=== PATIENT | female | born 1960 | race Caucasian/White ===

== ENCOUNTER 2022-05-06 14:58 | Emergency (ER) | payer OTHER, SELFPAY ==
[2022-05-06 15:06] VITALS: PULSE 69; O2SAT 97
[2022-05-06 15:07] VITALS: BP 131/73; PULSE 69; O2SAT 96
--- NOTE | 2022-05-06 15:13 | ED.LOWEXIN ---
HPI - Extremity Injury (Lower) General Chief Complaint: Fall Stated Complaint: fall through porch, right leg injury Time Seen by Provider: 05/06/22 15:03 History of Present Illness HPI Narrative: Patient is a 61-year-old female who has a history of asthma presenting today with right leg pain. She reports going down the steps of her porch when she slipped through 1 of the stairs. She was stuck in the stair waited 40 minutes before anyone could find her. She received Toradol and fentanyl prior to arrival. He is able to move her toes she is complaining of pain mostly in her mayo. She does not think she hit her head or lost consciousness. She is no neck pain no other injury. Her hip and knee on that side do not have pain. Related Data Previous Rx's Medication Instructions Recorded hydrocodone 5 mg-acetaminophen 325 1 tab PO Q6H PRN pain #10 tabs 05/06/22 mg tablet Review of Systems Review of Systems ROS Unobtainable: All systems reviewed & are unremarkable except as noted in HPI and below Patient History Social History Smoking Status: Current some day smoker Exam Initial Vital Signs Initial Vital Signs: Vital Signs Pulse Rate 69 05/06/22 15:06 Pulse Oximetry 97 05/06/22 15:06 GENERAL: Alert pleasant well-appearing 61-year-old HEENT: Head atraumatic,EOMI, pupils reactive, face symmetric, moist mucous membranes NECK: No vertebral tenderness no step-off full flexion-extension and rotation CARDIOVASCULAR: Regular rate and rhythm without murmurs, rubs or gallops. RESPIRATORY: Breath sounds equal bilaterally, no wheezes rales or rhonchi. ABDOMEN: Soft, nontender. Normoactive bowel sounds all 4 quadrants. No guarding or rebound. EXTREMITIES: Normal range of motion, no clubbing or edema. Neurovascularly intact. Pelvis stable Right lower extremity: Able to flex and extend knee no significant effusion knee is stable able to move toes ankle is stable distal pedal pulses intact and palpable. Calf is soft some superficial scratches noted no significant laceration NEUROLOGICAL: Alert and oriented x4. SKIN: Warm, dry, no laceration, no petechiae, no rashes or lesions. Course Orders Ordered: ED Orders 05/06/22 15:14 XR ankle RT min 3V Stat XR tibia fibula RT 2V Stat Discontinued Medications Hydrocodone Bitart/Acetaminophen (Hydrocodone/Acet 5/325 Prepack) 1 bottle MISC SEEINSTR ONE Stop: 05/06/22 17:11 Last Admin: 05/06/22 17:22 Dose: 1 bottle Documented By: RENNY Vital Signs Vital signs: Vital Signs - 8 hr 05/06/22 15:16 05/06/22 15:06 05/06/22 15:07 Temperature 98.7 F Pulse Rate 63 69 Respiratory Rate 18 Blood Pressure 131/73 131/73 Pulse Oximetry 98 97 Oxygen Delivery Method Room Air 05/06/22 15:07 05/06/22 15:30 05/06/22 16:00 Temperature Pulse Rate 69 70 74 Respiratory Rate Blood Pressure Pulse Oximetry 96 96 94 Oxygen Delivery Method 05/06/22 17:32 Temperature Pulse Rate 64 Respiratory Rate 18 Blood Pressure 130/70 Pulse Oximetry 99 Oxygen Delivery Method Room Air MDM - Extremity Injury (Lower) Imaging Data Extremity x-ray #1: Radiologist's Impression: PROCEDURE:? XR TIBIA FUBULA RT 2V ? INDICATIONS:? fall ? TECHNIQUE:? 2 views of the tibia and fibula were acquired.? ? COMPARISON:? [facility], XR ANKLE RT MIN 3V, 05/06/2022, 15:12. ? FINDINGS:? ? Bones:? Overlying artifact can be seen.? Along the posterior aspect the distal tibia, there is a fracture fragment seen posteriorly, which has rounded, partially corticated margins. ? Soft tissues:? No suspicious soft tissue calcifications or masses.? ? ? IMPRESSION:? Likely remote fracture of the posterior distal tibia. ? If it would be helpful for clinical management decision making in this patient with this given history, please consider a dedicated ankle CT for further evaluation. ? ? Dictated by: John Mariee M.D. on 05/06/2022 at 14:51? Extremity x-ray #2: Radiologist's Impression: PROCEDURE:? XR ANKLE RT MIN 3V ? INDICATIONS:? fall pain ? TECHNIQUE:? 3 views of the ankle were acquired.? ? COMPARISON:? [facility], , XR TIBIA FIBULA RT 2V, 05/06/2022, 15:12. ? FINDINGS:? Overlying artifact can be seen. ? Bones:? No definite fractures or dislocations.? Ankle mortise is normally aligned.? No suspicious bony lesions.? The talar dome demonstrates no nikia abnormality.? Age-appropriate bony degenerative changes are seen.? ? Soft tissues:? No tibiotalar joint effusion.? Achilles tendon appears normal.? ? ? IMPRESSION:? Limited study demonstrating no nikia findings fracture or dislocation. ? If there is point tenderness (or other clinical suspicion for a fracture not seen on these images) then a dedicated CT could be considered for further evaluation, if clinically appropriate. ? Dictated by: John Mariee M.D. on 05/06/2022 at 14:44 ? ? MDM Narrative Medical decision making narrative: Patient 61-year-old female who presents with right leg pain after falling through her porch. She has no other injury x-rays are negative she is actually able to move it she has a couple of superficial erythematous scratches but no lacerations. She is able to ambulate with crutches. There is no evidence of compartment syndrome her calf is soft is able to move her foot and toes. Discussed pain control at home. And strict return precautions Discharge Plan Departure Patient Disposition: Home Clinical Impression: Pain in right leg, Contusion Instructions: Contusion Activity Restrictions/Additional Instructions: *You have been diagnosed with right leg pain and continue *What to do: I am so happy you did not break anything. Please keep leg elevated ice, use crutches as needed *Continue to take medications as directed [place] 1 tablet every 6 hours if needed for severe pain Motrin 600 mg every 6 hours if needed for [id number] *Follow up with your primary care provider in 2-3 days or call [phone] *Return to ER if you should have increasing pain swelling inability to move or any new, worsening or concerning symptoms CONTROLLED SUBSTANCE DISCHARGE (Narcotoic/benzodiazepine/Flexeril/Phenergan) 1. You have been prescribed narcotic medications, it does have acetaminophen/Tylenol/paracetamol in it, DO NOT TAKE MORE THAN 4,00mg in 24 hours of Tylenol. TRAMADOL DOES NOT CONTAIN TYLENOL 2. Please understand that we cannot provide further refills of narcotics, benzodiazepines or controlled substances through the ED and her pain management will need to be through your provider. 3. While on these medications you cannot drive or operate heavy machinery. 4. You cannot sign legal documents or perform any duties such as this. 5. As long as you're taking opiate pain medications he should also be taking a stool softener such as Colace, Dulcolax, MiraLAX or prune juice, to help avoid constipation. Prescriptions: New hydrocodone-acetaminophen 5-325 mg tablet 1 tab PO Q6H PRN (Reason: pain) Qty: 10 0RF Stand Alone Forms: Patient Portal/API
--- NOTE | 2022-05-06 15:14 | DI.RAD.S_ITS ---
PROCEDURE: XR TIBIA FUBULA RT 2V INDICATIONS: fall TECHNIQUE: 2 views of the tibia and fibula were acquired. COMPARISON: [facility], CR, XR ANKLE RT MIN 3V, 05/06/2022, 15:12. FINDINGS: Bones: Overlying artifact can be seen. Along the posterior aspect the distal tibia, there is a fracture fragment seen posteriorly, which has rounded, partially corticated margins. Soft tissues: No suspicious soft tissue calcifications or masses. IMPRESSION: Likely remote fracture of the posterior distal tibia. If it would be helpful for clinical management decision making in this patient with this given history, please consider a dedicated ankle CT for further evaluation. Dictated by: John Mariee M.D. on 05/06/2022 at 14:51 Approved by: John Mariee M.D. on 05/06/2022 at 14:52
--- NOTE | 2022-05-06 15:14 | DI.RAD.S_ITS ---
PROCEDURE: XR ANKLE RT MIN 3V INDICATIONS: fall pain TECHNIQUE: 3 views of the ankle were acquired. COMPARISON: [facility], , XR TIBIA FIBULA RT 2V, 05/06/2022, 15:12. FINDINGS: Overlying artifact can be seen. Bones: No definite fractures or dislocations. Ankle mortise is normally aligned. No suspicious bony lesions. The talar dome demonstrates no nikia abnormality. Age-appropriate bony degenerative changes are seen. Soft tissues: No tibiotalar joint effusion. Achilles tendon appears normal. IMPRESSION: Limited study demonstrating no nikia findings fracture or dislocation. If there is point tenderness (or other clinical suspicion for a fracture not seen on these images) then a dedicated CT could be considered for further evaluation, if clinically appropriate. Dictated by: John Mariee M.D. on 05/06/2022 at 14:44 Approved by: John Mariee M.D. on 05/06/2022 at 14:46
[2022-05-06 15:16] VITALS: BP 131/73; PULSE 63; RESP 18; TEMP 37.1; O2SAT 98; BMI 43.7
[2022-05-06 15:30] VITALS: PULSE 70; O2SAT 96
[2022-05-06 16:00] VITALS: PULSE 74; O2SAT 94
[2022-05-06] MEDS: HYDROCODONE/ACET 5/325 PREPACK 1 BOTTLE MISC (17:22)
[2022-05-06 17:32] VITALS: BP 130/70; PULSE 64; RESP 18; O2SAT 99
== END 2022-05-06 17:34 | disposition home or self-care (01) ==
PROVIDERS: Emergency Provider Emergency Medicine; Family Provider Nurse Practitioner
DX: S80.11XA Contusion of right lower leg, initial encounter (principal); M79.604 Pain in right leg; W01.0XXA Fall on same level from slipping, tripping and stumbling without subsequent striking against object, initial encounter
CPT/HCPCS: 73590; 73610; 99281; 99283